=== PATIENT | female | born 1970 | race Caucasian/White ===

== ENCOUNTER 2018-12-20 21:53 | Emergency (ER) | payer MEDICAID, SELFPAY ==
[2018-12-20 21:54] VITALS: BP 160/93; PULSE 82; RESP 14; TEMP 37.1; O2SAT 98; BMI 30.3
[2018-12-20] MEDS: Diphth,Pertuss(Acell),Tet Vac 0.5 ML Vial IM (22:35)
--- NOTE | 2018-12-20 22:40 | ED.VISSUMM ---
- ER Visit Summary Date of Service: 12/20/18 Chief Complaint: Left thumb laceration History of Present Illness: The patient is a 48 F who sustained a laceration to her left thumb. It happened today at at her job. She cut it with a razor. Her tetanus is about 13 years ago. She denies any other injuries. Physical Examination: Vital signs reviewed. Left hand exam reveals a 1 cm laceration on the left thumb on the radial side of the thumb nail. It does not involve the nail slightly however this is superficial in nature. Test Results: None performed Emergency Department Course and Treatment: Her tetanus was updated. I placed 2, 5?0 simple interrupted sutures. She will have these out in 7-10 days. Treatment Plan: [] Disposition: Discharge Impression: Left thumb laceration, 1 cm Laceration repair by ED physician This note was generated with [employer] dictation software. It may contain incorrect words, spelling, and punctuation that were not noted in review of the chart prior to signing ED Disposition - Plan for ED Patient: Chief Complaint: Laceration Referrals: Care Physician,No Primary [Primary Care Provider] -
--- NOTE | 2018-12-20 22:42 | ED.DEP ---
ED Disposition - Plan for ED Patient: Disposition: Home or Assisted Living Chief Complaint: Laceration Instructions: ED Laceration Hand Referrals: Care Physician,No Primary [Primary Care Provider] -
[2018-12-20 22:54] VITALS: BP 150/93; PULSE 73; RESP 16
== END 2018-12-20 22:55 | disposition home or self-care (01) ==
PROVIDERS: Emergency Provider Emergency Medicine
DX: S61.012A Laceration without foreign body of left thumb without damage to nail, initial encounter (principal); W27.8XXA Contact with other nonpowered hand tool, initial encounter; Y93.9 Activity, unspecified; Y92.89 Other specified places as the place of occurrence of the external cause; Y99.0 Civilian activity done for income or pay; Z23 Encounter for immunization; K21.9 Gastro-esophageal reflux disease without esophagitis
CPT/HCPCS: 12001; 90715; 99283

== ENCOUNTER 2019-09-20 22:01 | Emergency (ER) | payer OTHER, MEDICAID, SELFPAY ==
[2019-09-20 22:04] VITALS: BP 159/99; PULSE 77; RESP 16; TEMP 36.8; O2SAT 97; BMI 29.0
--- NOTE | 2019-09-20 22:09 | RAD_ITS ---
STUDY: X-RAY - LEFT FOOT CLINICAL: Female, 48 years old. Trauma TECHNIQUE: 3 view(s) of the foot. COMPARISON: None. FINDINGS: Normal talus,, and tarsal bones. Large plantar calcaneal spur is noted. Normal visualized subtalar, talonavicular, calcaneocuboid, tarsal and tarsometatarsal articulations. Normal metatarsi. Normal metatarsophalangeal joint of the great toe. Normal tibial and fibular sesamoid bones. Normal interphalangeal joint of the great toe. Normal phalanges of the great toe. Normal second through fifth metatarsophalangeal joints. Normal interphalangeal joints and phalanges of the lesser toes. Mild diffuse soft tissue swelling noted. RAD/Foot min 3 Views IMPRESSION: Soft tissue swelling without evidence for acute fracture Electronically Signed: Ruddy Levin MD at 22:28 EDT , Service support ,
--- NOTE | 2019-09-20 23:30 | ED.VIS.GEN ---
History of Present Illness Chief Complaint: Lower Extremity Injury Narrative: This patient is a pleasant 48-year-old female who presents with a left foot injury. This occurred at work. She caught her left foot between a power jazz and a metal bar. This occurred about 4:00 in the afternoon. She was able to complete her shift. She has been able to ambulate. No other injuries. No numbness tingling or weakness. Past Medical History - Allergies and Home Meds Allergies/Adverse Reactions: Allergies No Known Allergies Allergy (Verified 09/20/19 22:04) Primary Care Physician: Care Physician,Yamilet Primary [Primary Care Provider] - Past Medical History: - - GERD Smoking Status: Never smoker Review of Systems All systems negative except as indicated Musculoskeletal: Reports: - - Left foot pain Physical Exam Vital Signs/Narrative: Vital Signs Temp Pulse Resp BP Pulse Ox 09/20/19 22:04 98.2 F 77 16 159/99 H 97 General: Well nourished Head: Normocephalic Eyes: EOMI ENT: Moist mucous membranes Cardiovascular: Regular rate Respiratory: No distress Extremities: - - Active full range of motion of the left lower extremity soft tissue swelling of the left foot no bony deformity or focal bony tenderness easily palpable dorsalis pedis pulse brisk capillary refill normal sensation Skin: Normal color Neurological: Alert Diagnostic/Tx/Re-eval Impressions Foot X-Ray 09/20/19 22:09 IMPRESSION: Soft tissue swelling without evidence for acute fracture Electronically Signed: Ruddy Levin MD at 22:28 EDT , Service support , 09/20/19 22:09 Xray Foot [Foot min 3 Views] [RAD] Stat - Medical Decision Making X-ray as read by radiology and on my review shows soft tissue swelling but no fracture. Patient advised on supportive care including rest ice elevation. She was provided with a naproxen prescription and a postoperative shoe. All questions answered bedside and patient discharged. ED Disposition - Plan for ED Patient: Disposition: Home or Assisted Living Diagnosis: Contusion of left foot Instructions: CONTUSION, Foot Prescriptions: Naproxen [Naprosyn] 500 mg PO BID PRN #20 tab Prescription Printed Referrals: Care Physician,No Primary [Primary Care Provider] - Corporate,Care [GROUP OF PHYSICIANS] -
[2019-09-21 00:07] VITALS: RESP 18
== END 2019-09-21 00:08 | disposition home or self-care (01) ==
LOC: ED 09-21 00:01
PROVIDERS: Emergency Provider Emergency Medicine
DX: S90.32XA Contusion of left foot, initial encounter (principal); W23.0XXA Caught, crushed, jammed, or pinched between moving objects, initial encounter; Y93.9 Activity, unspecified; Y92.9 Unspecified place or not applicable; Y99.0 Civilian activity done for income or pay; K21.9 Gastro-esophageal reflux disease without esophagitis
CPT/HCPCS: 73630; 99283

== ENCOUNTER 2024-02-07 13:18 | Emergency (ER) | payer MEDICAID, SELFPAY ==
[2024-02-07 13:19] VITALS: BP 176/88; PULSE 102; RESP 18; TEMP 36.2; O2SAT 97; BMI 27.2
--- NOTE | 2024-02-07 13:48 | ED.VIS.LOWEX ---
HPI History of Present Illness HPI Narrative: Abscesses just below the right knee. On the right lower leg. 2 weeks. Getting worse. Saw an urgent care. Was placed on prednisone for 5 days. Only getting worse. No fever. No fall or trauma. Chief Complaint: Wound Check Informant: patient Occured/Mechanism Mechanism/Context: No injury and No blunt trauma Onset/Context/Timing Onset: Weeks Context: Gradual Onset Timing: Continuous Quality of Pain: Sharp, Dull, Aching, Burning, Stabbing and Throbbing Current Severity: Mild Maximum Severity: Mild Associated Symptoms Associated Symptoms: Negative for Parasthesia, Weakness or Loss of Funtion Narrative Narrative: 53-year-old female with abscesses on her proximal right lower leg. No prior history. No history of MRSA. Reportedly not diabetic. Patient admittedly has not seen a doctor for many years. Prior similar symptoms: No Recent Illness/Hospitalization: No PFSH PFSH Medical History no medical history no medical history Home Medications Ranitidine [Zantac] 150 mg PO DAILY 12/20/18 [History Last Taken Unknown] naproxen 500 mg tablet 500 mg PO BID PRN #20 tabs 09/20/19 [Rx Last Taken Unknown] cephalexin 500 mg capsule 500 mg PO Q6 #40 CAPSULES 02/07/24 [Rx Last Taken Unknown] glucometer #1 ea 02/07/24 [Rx Last Taken Unknown] glucometer #1 ea 02/07/24 [Rx Last Taken Unknown] lisinopril 10 mg tablet 10 mg PO DAILY #30 tabs 02/07/24 [Rx Last Taken Unknown] metformin 500 mg tablet 500 mg PO BID 30 days #60 tabs 02/07/24 [Rx Last Taken Unknown] sulfamethoxazole 800 mg-trimethoprim 160 mg tablet (Bactrim DS) 1 tab PO BID 10 days #20 tabs 02/07/24 [Rx Last Taken Unknown] Allergy/AdvReac Type Severity Reaction Status Date / Time No Known Allergies Allergy Verified 02/07/24 13:18 Social History Smoking Status: Never smoker ROS ROS ED ROS Narrative Denies recent illness. Denies fever or chills. Denies nausea, vomiting or diarrhea. Review of Systems ROS Unobtainable: Denies due to encephalopathy Constitutional Constitutional ED: Denies chills or fever(s) ENT ENT ED: Denies ear pain Cardiovascular Cardiovascular: Denies chest pain Respiratory/Chest Respiratory/Chest: Denies cough or dyspnea Gastrointestinal Gastrointestinal: Denies abdominal pain, constipation, diarrhea, nausea or vomiting Genitourinary Genitourinary ED: Denies dysuria or hematuria Musculoskeletal Musculoskeletal: Denies arthralgias Integumentary Reports abscess; Denies Abrasions Neurologic Neurologic: Denies headache(s) Psychiatric Psychiatric: Denies anxiety or depression Endocrine Endocrinology: Denies polydipsia or polyphagia Hematologic/Lymphatic Hematologic/Lymphatic: Denies easy bleeding, easy bruising or lymphadenopathy Allergic/Immunologic Allergic/Immunologic ED: Denies mouth swelling, tongue swelling or urticaria EXAM Physical Exam Narrative Exam Narrative: 53-year-old female no acute distress vital signs stable afebrile. Blood pressure elevated 176/88. She has a history of elevated blood pressures and following up with that in next couple weeks. She currently has no primary care physician. HEENT exam unremarkable. Neck nontender JVD. Lungs clear to auscultation bilaterally. Heart regular rhythm no murmur. Abdomen soft nontender. Moving all 4 extremities. Her right proximal lower leg below the knee there is a small abscess about the size of a dime and 3 smaller areas to the right of it laterally consistent with like an MRSA infection. There is no lymphangitic streaking. No inguinal lymphadenopathy. No septic joint. She has full flexion extension of her right knee. It is not red hot or swollen. Right ankle and foot has normal range of motion. Normal dorsi and plantarflexion. Normal strength. There is no significant surrounding cellulitis. Mildly tender to palpation. Const Vital Signs: 02/07/24 13:19 Temperature 97.1 F L Temperature Source Temporal Pulse Rate 102 H Respiratory Rate 18 Blood Pressure 176/88 H Blood Pressure Mean 117 Pulse Ox 97 Oxygen Delivery Method Room Air Positive well nourished and well developed; Negative for cachectic, contractures or unkempt General Appearance ED: well developed; Negative for unkempt, cachectic or contractures Nutritional Appearance: Negative for cachectic HEENT Reports moist mucous membranes normocephalic and atraumatic; Negative for trauma or tenderness Eyes PERRL General Eye ED: Negative for other Neck full ROM and supple Thyroid: Negative for tender or other Lymph Lymphatic: Negative for other Chest Wall inspection of chest normal and palpation of chest normal Chest: Negative for other Resp normal respiratory effort, no retractions and clear to auscultation bilaterally Effort and Inspection: Negative for pain with movement Auscultation: Negative for rales, rhonchi, wheezes or diminished lung sounds Cardio regular rate, regular rhythm, S1 normal heart sound, S2 normal heart sound and no murmurs Rate: Negative for bradycardia or tachycardic Rhythm: Negative for abnormal rhythm GI non-tender, non-distended and no masses Inspection: Negative for abdominal distention Auscultation: normoactive bowel sounds Palpation: soft; Negative for tender, guarding or rebound tenderness present Back/Spine no CVA tenderness General Back: Negative for CVA tenderness Cervical Spine: Negative for cervical spine tenderness Thoracic Spine / Upper Back: Negative for thoracic spinal tenderness Lumbar Spine / Lower Back: Negative for lumbar spinal tenderness Extremity full ROM; Negative for normal to inspection Extremity Narrative: Abscess proximal right lower leg. Consistent with possible MRSA. General Extremety ED: Negative for cyanosis or edema General Extremity: Negative for cyanosis or edema Neuro oriented x3, CN's II-XII intact bilaterally and moves all extremities Sensorium / Orientation: alert, oriented to person, oriented to place and oriented to time; Negative for orientation impaired, confused, lethargic or stuporous Motor Exam: strength 5/5 throughout Psych mental status grossly normal Appearance: Negative for unkempt Mood & Affect: Negative for anxious Skin No no wounds Skin Narrative: Abscesses proximal right lower leg. Lesions: no lesions Rashes: no rashes Trauma: Negative for abrasion or laceration MDM MDM MDM Narrative Medical decision making narrative: 53-year-old female looks like MRSA infection proximal right lower leg anteriorly. The one abscess about the size of a dime I&D. She will be started on Bactrim and Keflex for 10 days each. Given first dose of each here. Outpatient follow-up. She also needs a follow-up with her blood pressure. Small blister remained in very minor incision after let was applied. There was no pus. It seemed to have spontaneously ruptured while she was here. History & Record Review Discussion w/independent historian: Patient and Family Additional record(s) reviewed:: Prior inpatient record, Prior outpatient record, Prior ED visit and Prior labs Lab Data Attestation: I reviewed the patient's lab results. Lab results narrative: Blood sugar is 377. Labs: Laboratory Results - last 24 hr 02/07/24 14:02 POC Glucose 377 H Discharge Plan Triage Chief Complaint: Wound Check ED Provider: Moises Yang Dx/Rx/DC Orders Clinical Impression: Abscess, Diabetes mellitus, new onset, Hypertension Instructions: Abscess Drainage, ED Hypertension, Established, ED Hyperglycemia New Poss Diabetes Prescriptions: New cephalexin 500 mg capsule 500 mg PO Q6 Qty: 40 0RF sulfamethoxazole-trimethoprim [Bactrim DS] 800-160 mg tablet 1 tab PO BID 10 Days Qty: 20 0RF metformin 500 mg tablet 500 mg PO BID 30 Days Qty: 60 0RF lisinopril 10 mg tablet 10 mg PO DAILY Qty: 30 0RF (DME) glucometer See Rx Instructions .Route .MEDSUPPLY Qty: 1 0RF Rx Instructions: As directed (DME) glucometer See Rx Instructions .Route .MEDSUPPLY Qty: 1 0RF Rx Instructions: As directed No Action Ranitidine [Zantac] 150 MG tablet 150 mg PO DAILY naproxen 500 MG tablet 500 mg PO BID PRN Qty: 20 0RF Primary Care Provider: Care Physician,No Primary Referrals: Isai Vargas MD [Med Staff - Clinical Research Monitor] - As soon as possible Jennifer Bailey [Non-Staff] - As soon as possible Care Physician,No Primary [Primary Care Provider] - Activity Restrictions/Additional Instructions: This is an infection. Tylenol Motrin for pain. Follow-up for further evaluation your blood pressure may need to be started on blood pressure medications. You need to take both antibiotics. The Keflex 4 times a day for 10 days. The Bactrim twice a day for 10 days. Return if a lot worse. Otherwise follow-up with local primary care physician. Your blood sugar today was 377. With your family history you are definitely a new onset diabetic. Start the metformin you will take 1 pill twice a day take it after breakfast and after dinner. Watch your blood sugars closely. You will need diabetic teaching when you follow-up with jennifer bailey You also be started on a blood pressure medication called lisinopril. Take it like 2 hours before you go to bed. Watch her blood sugars. They may or may not have to adjust the dose. It usually works well. Also in diabetic patient and helps protect the kidneys. Disposition Disposition: Home, Self Care
[2024-02-07] MEDS: Lidocaine/Epi/Tetracaine 50 ML 1 APPLIC TOPICAL (14:00)
[2024-02-07] MEDS: Cephalexin 250 MG Capsule 500 MG PO (14:01)
[2024-02-07] MEDS: Smz/Tmp Ds Tablet 1 TABLET PO (14:01)
[2024-02-07 14:20] LABS: Bedside Glucose 377 mg/dL (74-106)
[2024-02-07 15:46] VITALS: BP 176/88; PULSE 102; RESP 18; TEMP 36.2; O2SAT 97
== END 2024-02-07 15:49 | disposition home or self-care (01) ==
PROVIDERS: Emergency Provider Emergency Medicine; Visit Provider Emergency Medicine
DX: L02.415 Cutaneous abscess of right lower limb (principal); E11.9 Type 2 diabetes mellitus without complications; I10 Essential (primary) hypertension
CPT/HCPCS: 82962; 99284

== ENCOUNTER 2024-02-09 13:43 | Emergency (ER) | payer MEDICAID, SELFPAY ==
[2024-02-09 13:44] VITALS: BP 133/81; PULSE 109; RESP 118; TEMP 37; O2SAT 100
[2024-02-09 13:45] VITALS: BP 133/81; PULSE 109; RESP 17; TEMP 37; O2SAT 100
[2024-02-09 14:45] VITALS: BP 133/81; PULSE 109; RESP 17; TEMP 37; O2SAT 100
--- NOTE | 2024-02-09 15:59 | ED.RN ---
unable to complete sepsis screen on time due to busy triage
[2024-02-09 18:03] VITALS: BP 153/95; PULSE 101; RESP 18; TEMP 36.7; O2SAT 99
--- NOTE | 2024-02-09 18:19 | EX.ED.DYSGE1 ---
HPI <DENISE Castellanos - Last Filed: 02/09/24 19:34> History of Present Illness Chief Complaint: Nausea/Vomiting Narrative Narrative: Patient is a 53-year-old female with newly onset type 2 diabetes, hypertension who was seen here 2 days ago for an abscess. Patient abscess to the right lower extremity, just below the knee. There was an I&D completed, patient also had some satellite lesions, this is consistent with MRSA. Patient placed on Bactrim, Keflex, over the last 2 to 3 days, the patient states she has been having some nausea feeling, did have 1 episode of vomiting today. She did check her blood sugar which was greater than 400. Patient dates she generally not feeling well. Patient is here for evaluation. She denies any fever or chills. PFSH <DENISE Castellanos - Last Filed: 02/09/24 19:34> PFSH Home Medications Ranitidine [Zantac] 150 mg PO DAILY 12/20/18 [History Last Taken Unknown] naproxen 500 mg tablet 500 mg PO BID PRN #20 tabs 09/20/19 [Rx Last Taken Unknown] cephalexin 500 mg capsule 500 mg PO Q6 #40 CAPSULES 02/07/24 [Rx Last Taken Unknown] glucometer #1 ea 02/07/24 [Rx Last Taken Unknown] glucometer #1 ea 02/07/24 [Rx Last Taken Unknown] lisinopril 10 mg tablet 10 mg PO DAILY #30 tabs 02/07/24 [Rx Last Taken Unknown] metformin 500 mg tablet 500 mg PO BID 30 days #60 tabs 02/07/24 [Rx Last Taken Unknown] sulfamethoxazole 800 mg-trimethoprim 160 mg tablet (Bactrim DS) 1 tab PO BID 10 days #20 tabs 02/07/24 [Rx Last Taken Unknown] ondansetron 4 mg disintegrating tablet 4 mg PO Q8H PRN PRN Nausea #20 tabs 02/09/24 [Rx Last Taken Unknown] Allergy/AdvReac Type Severity Reaction Status Date / Time No Known Allergies Allergy Verified 02/07/24 13:18 Social History Smoking Status: Never smoker ROS <DENISE Castellanos - Last Filed: 02/09/24 19:34> ROS ED ROS Narrative Constitutional: Negative for fever, chills, weight loss, weakness Eyes: Negative for vision loss, vision change, double vision ENT: Negative for any sore throat, ear pain, congestion Cardiovascular: Negative for any chest pain, tightness, palpitations Respiratory: Negative for any cough, sputum production, hemoptysis, dyspnea, dyspnea on exertion, orthopnea Gastrointestinal: Negative for any abdominal pain, diarrhea, constipation, blood in stool, blood in vomit. Positive for nausea and vomiting : Negative for any urinary frequency, dysuria, retention, blood in urine Muscle skeletal: Negative for any neck pain, back pain Neurological: Negative for any headache, syncope, dizziness Skin: Negative for any rashes, itching, abrasions, lacerations. Positive for cellulitis, abscess formation right lower extremity Psychiatric: Negative for any depression, anxiety, stress, suicidal ideation, homicidal ideation Hematologic: Negative for any excessive bruising, easy bleeding EXAM <Billy Abbott NP-[place] - Last Filed: 02/09/24 19:34> Physical Exam Narrative Exam Narrative: Vital signs reviewed. HEET: Head normocephalic atraumatic, TMs clear bilaterally. Posterior pharynx is clear, dry mucous membranes. Nares clear bilaterally. Neck: Supple with no lymphadenopathy or tenderness. No signs of meningismus. Cardiac: Regular rate and rhythm no murmurs gallops or rubs, equal peripheral pulses bilaterally. Respiratory: Lungs clear to auscultation bilaterally. No chest tenderness. Abdomen: Soft, nontender, nondistended. No abdominal bruit or pulsatile masses. No hepatosplenomegaly Extremities: Patient does have some edema, pain to the lower extremity on the right. Patient does have a abscess that looks like it has been lanced, there is some surrounding cellulitis however it does not look greatly significant, is not streaking up the thigh. Patient has +2 pedal pulse. She does have some lower leg edema, this could be secondary to infection dependent edema.. Active full range of motion of all extremities. Neuro: Cranial nerves II through XII intact, no focal neurological deficits. Skin: Clean dry and intact with no rash, purpura, petechiae, vesicles or pustules. Backs/flank: No CVA tenderness, no midline spinal tenderness, no deformity. Psych: Normal mood and affect. No SI, HI or acute psychosis. Const Vital Signs: 02/09/24 13:44 02/09/24 13:45 02/09/24 14:45 Temperature 98.6 F 98.6 F 98.6 F Temperature Source Temporal Temporal Temporal Pulse Rate 109 H 109 H 109 H Respiratory Rate 118 H 17 17 Blood Pressure 133/81 H 133/81 H 133/81 H Blood Pressure Mean 98 98 98 Pulse Ox 100 100 100 Oxygen Delivery Method Room Air Room Air Room Air 02/09/24 18:03 02/09/24 19:00 02/09/24 19:42 Temperature 98.1 F 97.3 F L 97.3 F L Temperature Source Oral Temporal Pulse Rate 101 H 90 94 Respiratory Rate 18 16 16 Blood Pressure 153/95 H 138/81 H 151/84 H Blood Pressure Mean 114 100 106 Pulse Ox 99 96 98 Oxygen Delivery Method Room Air Room Air Positive well nourished and well developed General Appearance ED: well developed <Dr. Ken Preciado DO - Last Filed: 02/09/24 20:53> Physical Exam Const Vital Signs: 02/09/24 13:44 02/09/24 13:45 02/09/24 14:45 Temperature 98.6 F 98.6 F 98.6 F Temperature Source Temporal Temporal Temporal Pulse Rate 109 H 109 H 109 H Respiratory Rate 118 H 17 17 Blood Pressure 133/81 H 133/81 H 133/81 H Blood Pressure Mean 98 98 98 Pulse Ox 100 100 100 Oxygen Delivery Method Room Air Room Air Room Air 02/09/24 18:03 02/09/24 19:00 02/09/24 19:42 Temperature 98.1 F 97.3 F L 97.3 F L Temperature Source Oral Temporal Pulse Rate 101 H 90 94 Respiratory Rate 18 16 16 Blood Pressure 153/95 H 138/81 H 151/84 H Blood Pressure Mean 114 100 106 Pulse Ox 99 96 98 Oxygen Delivery Method Room Air Room Air MDM <DENISE Castellanos - Last Filed: 02/09/24 19:34> MDM Lab Data Labs: Laboratory Results - last 24 hr 02/09/24 18:30 WBC 12.0 H RBC 4.82 Hgb 14.2 Hct 41.6 MCV 86.3 MCH 29.5 MCHC 34.1 RDW Std Deviation 38.9 RDW Coeff of Rick 12.3 Plt Count 252 MPV 9.7 Immature Gran % (Auto) 0.300 Neut % (Auto) 73.4 H Lymph % (Auto) 18.9 L Bland % (Auto) 6.5 Eos % (Auto) 0.7 Baso % (Auto) 0.2 Absolute Neuts (auto) 8.8 H Absolute Lymphs (auto) 2.27 Nucleated RBC % 0 Sodium 134 L Potassium 3.8 Chloride 102 Carbon Dioxide 24.0 Anion Gap 8 BUN 21 H Creatinine 1.09 H Estim Creat Clear Calc 64.05 Est GFR (MDRD) Af Amer 67 Est GFR (MDRD) Non-Af 56 L BUN/Creatinine Ratio 19.3 Glucose 252 H Lactic Acid 1.4 Calcium 9.3 Total Bilirubin 0.70 AST 16 ALT 26 Alkaline Phosphatase 119 H Total Protein 7.6 Albumin 3.3 Globulin 4.3 H Albumin/Globulin Ratio 0.8 L Lipase 44 Acetone Level NEGATIVE Treatment and Re-Evaluation :: Differential diagnosis includes however is not limited to: Sepsis, medication reaction, DKA, hyperglycemia, worsening cellulitis right lower extremity Patient appears to be in no obvious respiratory distress, patient's vital signs are stable. Patient presents to the emergency department with complaints of nausea, 1 episode of vomiting, patient is also currently being treated for cellulitis, abscess to the right lower extremity. Secondary to the patient's blood sugar being greater than 400, patient still complaining of pain along her infection to the right lower extremity, patient will receive further workup. I will rule the patient out for any DKA. Patient will also be receiving 1 L normal saline, Zofran. Lactic acid will be obtained. Patient CBC shows a leukocytosis of 12.0, patient's chemistries show a creatinine of 1.09, sodium 134, blood sugars was 252, this is better than the 400 that they had at home. Patient's lactic acid was negative, patient's acetone was negative. At this time, is no evidence suspect any DKA. Patient did receive IV fluids, IV Zofran. On reevaluation, the patient felt much better. The patient will be given Zofran for home, she will be continue taking her Zofran, metformin, blood pressure medicine as well as antibiotics. She is instructed to keep the area clean and dry. All questions were answered, she is instructed return for any worsening symptoms. <Dr. Ken Preciado, DO - Last Filed: 02/09/24 20:53> [facility] MDM Narrative Medical decision making narrative: Differential diagnosis includes however is not limited to: Sepsis, medication reaction, DKA, hyperglycemia, worsening cellulitis right lower extremity Patient appears to be in no obvious respiratory distress, patient's vital signs are stable. Patient presents to the emergency department with complaints of nausea, 1 episode of vomiting, patient is also currently being treated for cellulitis, abscess to the right lower extremity. Secondary to the patient's blood sugar being greater than 400, patient still complaining of pain along her infection to the right lower extremity, patient will receive further workup. I will rule the patient out for any DKA. Patient will also be receiving 1 L normal saline, Zofran. Lactic acid will be obtained. Patient CBC shows a leukocytosis of 12.0, patient's chemistries show a creatinine of 1.09, sodium 134, blood sugars was 252, this is better than the 400 that they had at home. Patient's lactic acid was negative, patient's acetone was negative. At this time, is no evidence suspect any DKA. Patient did receive IV fluids, IV Zofran. On reevaluation, the patient felt much better. The patient will be given Zofran for home, she will be continue taking her Zofran, metformin, blood pressure medicine as well as antibiotics. She is instructed to keep the area clean and dry. All questions were answered, she is instructed return for any worsening symptoms. This patient was seen with a PA/[employer] Individually assessed they patient including history and physical. I have reviewed everything on the chart that is available and agree with the documentation provided by the PA/[employer] including discussion about the assessment, treatment plan, discussion, and return precautions. Patient presenting with nausea/vomiting. Recently diagnosed with diabetes and placed on hypertension medication. She also has history of abscess on the right leg. She states from infection standpoint her right leg is doing better. Antibiotics appear to be working. She was on prednisone this week which may be elevating her blood sugars however she states she does not noted that she is not supposed to check her blood sugar right after eating and she is not sure if she ate for checking her blood sugar and that this could be why her blood sugars are elevated. Patient currently feeling better after IV fluids, Zofran. Her nausea has resolved. Lab work is reassuring. She has no evidence of DKA. Given wound care instructions and return precautions. She is to follow-up outpatient and return for any new or worsening symptoms. Impression: 1. hyperglycemia 2. Wound check 3. Nausea/vomiting Lab Data Attestation: I reviewed the patient's lab results. Labs: Laboratory Results - last 24 hr 02/09/24 18:30 WBC 12.0 H RBC 4.82 Hgb 14.2 Hct 41.6 MCV 86.3 MCH 29.5 MCHC 34.1 RDW Std Deviation 38.9 RDW Coeff of Rick 12.3 Plt Count 252 MPV 9.7 Immature Gran % (Auto) 0.300 Neut % (Auto) 73.4 H Lymph % (Auto) 18.9 L Bland % (Auto) 6.5 Eos % (Auto) 0.7 Baso % (Auto) 0.2 Absolute Neuts (auto) 8.8 H Absolute Lymphs (auto) 2.27 Nucleated RBC % 0 Sodium 134 L Potassium 3.8 Chloride 102 Carbon Dioxide 24.0 Anion Gap 8 BUN 21 H Creatinine 1.09 H Estim Creat Clear Calc 64.05 Est GFR (MDRD) Af Amer 67 Est GFR (MDRD) Non-Af 56 L BUN/Creatinine Ratio 19.3 Glucose 252 H Lactic Acid 1.4 Calcium 9.3 Total Bilirubin 0.70 AST 16 ALT 26 Alkaline Phosphatase 119 H Total Protein 7.6 Albumin 3.3 Globulin 4.3 H Albumin/Globulin Ratio 0.8 L Lipase 44 Acetone Level NEGATIVE Discharge Plan Triage Chief Complaint: Nausea/Vomiting ED Midlevel Provider: Billy Abbott ED Provider: Ken Preciado Dx/Rx/DC Orders Clinical Impression: Medication adverse effect, Nausea & vomiting, Wound check, abscess, Acute hyperglycemia Instructions: ED Diabetic Hyperglycemia, ED Drug Reaction, Other, ED Vomiting (Adult) Prescriptions: New ondansetron 4 mg tablet,disintegrating 4 mg PO Q8H PRN PRN (Reason: Nausea) Qty: 20 0RF No Action Ranitidine [Zantac] 150 MG tablet 150 mg PO DAILY naproxen 500 MG tablet 500 mg PO BID PRN Qty: 20 0RF cephalexin 500 mg capsule 500 mg PO Q6 Qty: 40 0RF sulfamethoxazole-trimethoprim [Bactrim DS] 800-160 mg tablet 1 tab PO BID 10 Days Qty: 20 0RF metformin 500 mg tablet 500 mg PO BID 30 Days Qty: 60 0RF lisinopril 10 mg tablet 10 mg PO DAILY Qty: 30 0RF (DME) glucometer See Rx Instructions .Route .MEDSUPPLY Qty: 1 0RF Rx Instructions: As directed (DME) glucometer See Rx Instructions .Route .MEDSUPPLY Qty: 1 0RF Rx Instructions: As directed Primary Care Provider: Care Physician,No Primary Referrals: Care Physician,No Primary [Primary Care Provider] - Activity Restrictions/Additional Instructions: Please follow-up with your PCP this upcoming Monday as scheduled. Take the nausea medicine. Continue taking all of your medications. Continue to check your blood sugar 2 times a day Disposition Disposition: Home, Self Care Discharge Date/Time: 02/09/24 19:43
[2024-02-09] MEDS: 0.9% Normal Saline (1000mL) 1,000 ML 1000 ML IV (18:31)
[2024-02-09] MEDS: Ondansetron 4 MG/2 ML Vial IV (18:31)
[2024-02-09 18:33] VITALS: BMI 27.4
[2024-02-09 18:36] LABS: Absolute Lymphocyte Count 2.27 X10^3/uL (0.83-4.51); Absolute Neutrophil Count 8.8 X10^3/uL (2.0-7.7); Basophil# 0.03 X10^3/uL; Basophil% 0.2 % (0-1); Eosinophil# 0.09 X10^3/uL; Eosinophils% 0.7 % (0-5); Hematocrit 41.6 % (37-47); Hemoglobin 14.2 g/dL (12.0-15.0); Lymphocyte # 2.27 X10^3/ul (0.83-4.51); Lymphocyte % 18.9 % (19-41); Mean Corp Hgb Conc 34.1 g/dL (32-36); Mean Corpuscular Hgb 29.5 pg (27.0-32.0); Mean Corpuscular Volume 86.3 fL (81-99); Mean Platelet Vol. 9.7 fl (6.2-12.0); Monocyte# 0.78 X10^3/uL; Monocyte% 6.5 % (0-10); NRBC Flagged by Analyzer 0 % (0-5); Neutrophil # 8.81 X10^3/uL (2.7-7.7); Neutrophil % 73.4 % (47-70); Platelet Count 252 K/mm3 (150-450); RBC Distribution Width CV 12.3 % (11.6-14.6); RBC Distribution Width SD 38.9 fl (35.1-43.9); Red Blood Count 4.82 M/mm3 (4.2-5.4)
[2024-02-09 18:57] LABS: ALB/GLOB Ratio 0.8 RATIO (0.9-2.4); AST(SGOT) 16 U/L (15-37); Alanine Aminotransfer ALT/SGPT 26 U/L (13-56); Albumin, Serum 3.3 g/dL (3.2-5.0); Alkaline Phosphatase 119 U/L (45-117); Anion Gap 8 (5-15); BUN 21 mg/dL (7-18); BUN/Creat Ratio 19.3 RATIO (10-20); Calcium,Total 9.3 mg/dL (8.5-10.1); Chloride 102 mmol/L (98-107); Creatinine, Serum 1.09 mg/dL (0.55-1.02); EST Glomerular Filtration Rate 56 mL/min (>60); Est Glom Filt Rate - Afr Amer 67 mL/min (>60); Estimated Creatinine Clearance 64.05 ml/min; Globulin 4.3 g/dL (2.2-4.2); Glucose 252 mg/dL (74-106); Lipase 44 U/L (13-75); Potassium 3.8 mmol/L (3.5-5.1); Protein, Total 7.6 g/dL (6.4-8.2); Sodium Level 134 mmol/L (136-145)
[2024-02-09 19:00] VITALS: BP 138/81; PULSE 90; RESP 16; TEMP 36.3; O2SAT 96
[2024-02-09 19:13] LABS: Lactic Acid 1.4 mmol/L (0.4-1.9)
[2024-02-09 19:42] VITALS: BP 151/84; PULSE 94; RESP 16; TEMP 36.3; O2SAT 98
== END 2024-02-09 19:43 | disposition home or self-care (01) ==
PROVIDERS: Nurse Practitioner; Emergency Provider Student in an Organized Health Care Education/Training Program; Visit Provider Student in an Organized Health Care Education/Training Program
DX: E11.65 Type 2 diabetes mellitus with hyperglycemia (principal); R11.2 Nausea with vomiting, unspecified; I10 Essential (primary) hypertension; L02.91 Cutaneous abscess, unspecified; T38.0X5A Adverse effect of glucocorticoids and synthetic analogues, initial encounter
CPT/HCPCS: 80053; 82009; 83605; 83690; 85025; 96361; 96374; 99283; J7030; A4216; J2405

== ENCOUNTER → 2024-05-29 | Outpatient (CLI) | payer OTHER, SELFPAY ==
[2024-05-29 12:27] LABS: Absolute Lymphocyte Count 2.32 X10^3/uL (0.83-4.51); Absolute Neutrophil Count 4.1 X10^3/uL (2.0-7.7); Basophil# 0.03 X10^3/uL; Basophil% 0.4 % (0-1); Eosinophil# 0.12 X10^3/uL; Eosinophils% 1.7 % (0-5); Hematocrit 45.3 % (37-47); Hemoglobin 14.7 g/dL (12.0-15.0); Lymphocyte # 2.32 X10^3/ul (0.83-4.51); Lymphocyte % 33.3 % (19-41); Mean Corp Hgb Conc 32.5 g/dL (32-36); Mean Corpuscular Hgb 28.9 pg (27.0-32.0); Mean Corpuscular Volume 89.2 fL (81-99); Mean Platelet Vol. 10.7 fl (6.2-12.0); Monocyte# 0.39 X10^3/uL; Monocyte% 5.6 % (0-10); NRBC Flagged by Analyzer 0 % (0-5); Neutrophil # 4.09 X10^3/uL (2.7-7.7); Neutrophil % 58.7 % (47-70); Platelet Count 273 K/mm3 (150-450); RBC Distribution Width CV 12.4 % (11.6-14.6); RBC Distribution Width SD 41.1 fl (35.1-43.9); Red Blood Count 5.08 M/mm3 (4.2-5.4)
[2024-05-29 13:10] LABS: AST(SGOT) 26 U/L (15-37); Alanine Aminotransfer ALT/SGPT 33 U/L (13-56); Albumin, Serum 3.4 g/dL (3.2-5.0); Alkaline Phosphatase 71 U/L (45-117); Anion Gap 7 (5-15); BUN 16 mg/dL (7-18); BUN/Creat Ratio 20.7 RATIO (10-20); Calcium,Total 9.4 mg/dL (8.5-10.1); Chloride 112 mmol/L (98-107); Cholesterol 164 mg/dL (200); Creatinine, Serum 0.77 mg/dL (0.55-1.02); EST Glomerular Filtration Rate 82 mL/min (>60); Est Glom Filt Rate - Afr Amer 100 mL/min (>60); Globulin 3.5 g/dL (2.2-4.2); Glucose 109 mg/dL (74-106); High Density Lipoprotein 50 mg/dL; Protein, Total 6.9 g/dL (6.4-8.2); Sodium Level 140 mmol/L (136-145); Triglycerides 86 mg/dL; Very Low Density Lipoprotein 17 mg/dL (5-40)
== END | disposition home or self-care (01) ==
LOC: VSLAB 11:13
PROVIDERS: Visit Provider Nurse Practitioner Family
DX: E11.9 Type 2 diabetes mellitus without complications (principal)
CPT/HCPCS: 36415; 80053; 80061; 82043; 84443; 85025

== ENCOUNTER → 2025-06-11 | Outpatient (CLI) | payer OTHER, SELFPAY ==
[2025-06-11 16:33] LABS: Hematocrit 45.4 % (37-47); Hemoglobin 15.2 g/dL (12.0-15.0); Immature Granulocytes Count 0.020 X10^3/uL (0.0-0.0); Mean Corp Hgb Conc 33.5 g/dL (32-36); Mean Corpuscular Volume 86.5 fL (81-99); Mean Platelet Vol. 9.5 fl (6.2-12.0); NRBC Flagged by Analyzer 0 % (0-5); Platelet Count 271 K/mm3 (150-450); RBC Distribution Width CV 12.2 % (11.6-14.6); RBC Distribution Width SD 38.7 fl (35.1-43.9); Red Blood Count 5.25 M/mm3 (4.2-5.4); White Blood Count 8.9 K/mm3 (4.4-11.0)
[2025-06-11 16:55] LABS: Microalbumin,Random Urine < 12.0 mg/L (<20 mg/L)
[2025-06-11 17:07] LABS: AST(SGOT) 26 U/L (<=31); Alanine Aminotransfer ALT/SGPT 27 U/L (<=34); Albumin, Serum 4.4 g/dL (3.5-5.0); Alkaline Phosphatase 100 U/L (35-104); Anion Gap 14 (5-15); BUN 22 mg/dL (4-19); BUN/Creat Ratio 24.3 RATIO (10-20); Calcium,Total 9.8 mg/dL (7.6-11.0); Carbon Dioxide 21.1 mmol/L (21.0-32.0); Chloride 102 mmol/L (98-108); Cholesterol 211 mg/dL (<=200); Globulin 3.2 g/dL (2.2-4.2); Glucose 111 mg/dL (70-99); Low Density Lipoprotein Calc. 127 mg/dL; Potassium 3.9 mmol/L (3.3-5.1); Triglycerides 157 mg/dL; Very Low Density Lipoprotein 31 mg/dL (5-40); cholesterol:hdl ratio screen 4.00
== END | disposition home or self-care (01) ==
LOC: VSLAB 15:27
PROVIDERS: PCP Nurse Practitioner Family; Visit Provider Nurse Practitioner Family
DX: E11.9 Type 2 diabetes mellitus without complications (principal); I10 Essential (primary) hypertension
CPT/HCPCS: 36415; 80053; 80061; 82043; 84443; 85025